=== PATIENT | female | born 2000 | race Caucasian/White ===

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

== ENCOUNTER 2022-07-28 23:03 | Emergency (ER) | payer MEDICAID ==
[~2022-07-28] VITALS: Ht 172.7 cm; Wt 109.1 kg
[2022-07-28] MEDS ORDERED: CYCL-1 PO (23:48)
[2022-07-28] MEDS ORDERED: ketorolac tromethamine 15mg/ml inj. IM ONE (23:50)
[2022-07-29 00:02] VITALS: BP 112/74
== END 2022-07-29 00:02 | disposition home or self-care (01) ==
LOC: ER 23:03
DX: S39.012A Strain of muscle, fascia and tendon of lower back, initial encounter (principal); X58.XXXA Exposure to other specified factors, initial encounter; Y93.89 Activity, other specified; Y92.89 Other specified places as the place of occurrence of the external cause; Y99.8 Other external cause status
CPT/HCPCS: 96372; 99283; J1885